=== PATIENT | male | born 1985 | race Asian ===

== ENCOUNTER 2020-04-28 00:55 | Emergency (ER) | payer BC ==
[2020-04-28 01:24] LABS: #Basophils 0.1 thou/uL (0.0-0.2); #Eosinphils 0.1 thou/uL (0.0-0.7); #Lymphocytes 2.6 thou/uL (1.20-3.40); #Monocytes 0.5 thou/uL (0.11-0.59); #Neutrophils 7.3 thou/uL (1.40-6.50); %Basophils 0.9 % (0.0-1.0); %Eosinophils 1.3 % (0.0-10.0); %Lymphocytes 24.3 % (21.0-51.0); %Neutrophils 68.5 % (42.0-75.0); Hemoglobin 17.4 g/dL (14.0-18.0); Mean Corpuscular HGB CONC 35.3 g/dL (32.0-36.0); Mean Corpuscular Hemoglobin 31.4 pg (27.0-31.0); Mean Platelet Volume 7.2 fL (7.4-10.4); Platelet Count 301 thou/uL (130-400); Red Blood Cell (RBC) Count 5.55 mill/uL (4.70-6.10); White Blood Cell (WBC) Count 10.6 thou/uL (4.8-10.8)
[2020-04-28 01:45] LABS: ALT (SGPT) 37 U/L (8-55); AST (SGOT) 27 U/L (5-34); Albumin 5.1 g/dL (3.5-5.0); Alkaline Phosphatase 78 U/L (40-110); Anion Gap 15 mmol/L (10-20); BUN (Urea Nitrogen) 10 mg/dL (8.9-20.6); Bilirubin, Total 0.6 mg/dL (0.2-1.2); Calc. Creatinine Clearance 0 mL/min (70-130); Calcium 9.7 mg/dL (7.8-10.44); Carbon Dioxide 26 mmol/L (22-29); Chloride 105 mmol/L (98-107); Globulin 3.6 g/dL (2.4-3.5); Glucose 126 mg/dL (70-105); Potassium 3.7 mmol/L (3.5-5.1); Protein, Total 8.7 g/dL (6.0-8.3); Sodium 142 mmol/L (136-145)
--- NOTE | 2020-04-28 08:29 | CT ---
PRELIMINARY REPORT/[facility]/EMERGENCY AFTER HOURS PROCEDURE EXAM: CTA Head and Neck with Intravenous Contrast. CT Head with/without Contrast. CLINICAL HISTORY: PT STATES HE HAS HAD SEVERAL EPISODES OF APHASIA DURING WHICH HE BELIEVES HE MAY HAVE HAD LEFT SIDED FACIAL DROOP WELL. PT IS VAN NEG AT TIME OF TRIAGE AND STATES HIS SYMPTOMS HAVE RESOLVED. TECHNIQUE: Axial CTA images of the head and neck performed with intravenous contrast. MIP reconstructed images w ere created and reviewed. Axial computed tomography images of the head/brain performed with/without intravenous contrast. Note: Per PQRS, the description of internal carotid artery percent stenosis, including 0 percent or n ormal exam, is based on [place] Symptomatic Carotid Endarterectomy Trial (NASCET) criteria. CONTRAST: With; [id number] COMPARISON: None provided. FINDINGS: CT HEAD: BRAIN: No acute intraparenchymal hemorrhage. No mass lesion. No CT evidence for acute territorial infarct. N o midline shift or extra-axial collection. VENTRICLES: No hydrocephalus. ORBITS: The orbits are unremarkable. SINUSES AND MASTOIDS: Paranasal sinus disease is present. CTA NECK: COMMON CAROTID ARTERIES No significant stenosis. No dissection or occlusion. INTERNAL CAROTID ARTERIES No stenosis by NASCET criteria. No dissection or occlusion. VERTEBRAL ARTERIES No significant stenosis. No dissection or occlusion. CTA HEAD: ANTERIOR CEREBRAL ARTERIES No significant stenosis. No occlusion. No aneurysm. MIDDLE CEREBRAL ARTERIES No significant stenosis. No occlusion. No aneurysm. POSTERIOR CEREBRAL ARTERIES No significant stenosis. No occlusion. No aneurysm. BASILAR ARTERY No significant stenosis. No occlusion. No aneurysm. OTHER: SOFT TISSUES No acute finding. No masses or lymphadenopathy. BONES No acute osseous abnormality. There is degenerative changes seen within the cervical spine with disc osteophyte complexes primarily at C4-C5 and C5-C6. There is moderate to severe neural foraminal narrowing bilaterally at C5-C6. There also appears to be some degree of spinal canal narrowing at th e same level with the canal narrowed to approximately 6 mm slightly right of midline. IMPRESSION: 1. No acute intracranial findings. 2. No evidence of intra-or extracranial aneurysm, dissection, occlusion or severe stenosis. 3. Degenerative change of the cervical spine, most severe at C5-C6 as above with likely moderate to severe bilateral neural foraminal stenosis and narrowing of the spinal canal slightly right of midline to 6 mm. Correlate with clinical symptoms. Consider MRI for further evaluation. ELECTRONICALLY SIGNED BY: Son Mortensen DO Apr 28, 2020 1:47:29 AM [employer] This report is intended for review by the ordering physician only, in accordance of law. If you recei ve this report in error, please call [facility] at [phone]. FINAL REPORT EXAM: CT ANGIOGRAM OF THE HEAD AND NECK INDICATION: Stroke like symptoms COMPARISON: None TECHNIQUE: CT angiogram of the head and neck are performed in the axial plane. Three-dimensional refo rmatted images are submitted for interpretation. FINDINGS: CTA OF THE HEAD WITH AND WITHOUT CONTRAST: POSTCONTRAST CT OF BRAIN: Pathologic enhancement: No pathologic enhancement the brain. Postcontrast soft tissue neck CT: Aerodigestive tract:Aerodigestive tract is patent. No mucosal abnormality. Limited evaluation of the oral cavity due to dental amalgam artifact. Epiglottis has a normal caliber. Preepiglottic fat is preserved. Sinuses: Partial opacification left ethmoid air cells. Mucus retention cysts in the left maxillary si nus. Orbits: Bilateral ocular lenses are appropriately located. Both globes are intact. Retrobulbar fat is preserved. Symmetric attenuation the optic nerves and ocular rectus muscles. Salivary glands:Appropriate attenuation of the parotid and submandibular glands. Thyroid gland: Appropriate attenuation of the thyroid gland. Lymph nodes: No evidence of lymphadenopathy by size criteria. Paraspinal muscles: Symmetric attenuation of the sternocleidomastoid muscles. Appropriate attenuation of the paraspinal muscles. Cervical spine:Vertebral body height is maintained. No fracture. Degenerative changes at C4-C5, C5-C6 due to disc osteophyte complex cyst. Technique limits evaluation. Upper mediastinum and lung apices: No acute abnormality CTA OF THE NECK WITH CONTRAST: Aorta: Appropriate enhancement and luminal diameter Right carotid artery: Appropriate enhancement and luminal diameter. No evidence of stenosis based upo n NASCET criteria Left carotid: Appropriate enhancement and luminal diameter. No evidence of stenosis based upon NASCET criteria Subclavian arteries:Symmetric and patent. Vertebral arteries: Patent throughout their course of the neck. Vertebral arteries are essentially co dominant CTA OF THE BRAIN: Intracranial internal carotid arteries:Appropriate enhancement and luminal diameter Anterior circulation: Appropriate enhancement and luminal diameter of the A1 segment, M1 segment, pro ximal A2 segment and proximal MCA branches. Intracranial vertebral arteries: Appropriate enhancement and luminal diameter Posterior circulation: Both vertebral arteries supply normal caliber basilar artery. Appropriate enha ncement and luminal diameter of the P1 segments. IMPRESSION: 1. This report is in agreement with initial report by [facility]. 2. No evidence of significant stenosis or vascular occlusion at the [place]. 3. No evidence of significant stenosis based upon NASCET criteria in the cervical carotid arteries. 4. Degenerative changes of the cervical spine as described in the initial report by [facility]. Transcribed Date/Time: 04/28/2020 8:58 AM
--- NOTE | 2020-04-28 08:45 | RAD ---
Exam: Chest one view HISTORY:Stroke like symptoms Comparison: None FINDINGS: Cardiac silhouette: Normal Aorta: Unremarkable Pulmonary vessels: Normal Costophrenic angles: Clear LUNGS: No masses or consolidation. Pneumothorax: None Osseous abnormalities: None IMPRESSION: No acute cardiopulmonary process.
[2020-04-28] MEDS ORDERED: Iopamidol-370 76% 500 ML 1 ML ONE (12:27)
--- NOTE | 2020-05-04 09:48 | CT ---
PRELIMINARY REPORT/[facility]/EMERGENCY AFTER HOURS PROCEDURE EXAM: CTA Head and Neck with Intravenous Contrast. CT Head with/without Contrast. CLINICAL HISTORY: PT STATES HE HAS HAD SEVERAL EPISODES OF APHASIA DURING WHICH HE BELIEVES HE MAY HAVE HAD LEFT SIDED FACIAL DROOP WELL. PT IS VAN NEG AT TIME OF TRIAGE AND STATES HIS SYMPTOMS HAVE RESOLVED. TECHNIQUE: Axial CTA images of the head and neck performed with intravenous contrast. MIP reconstructed images w ere created and reviewed. Axial computed tomography images of the head/brain performed with/without intravenous contrast. Note: Per PQRS, the description of internal carotid artery percent stenosis, including 0 percent or n ormal exam, is based on [place] Symptomatic Carotid Endarterectomy Trial (NASCET) criteria. CONTRAST: With; [id number] COMPARISON: None provided. FINDINGS: CT HEAD: BRAIN: No acute intraparenchymal hemorrhage. No mass lesion. No CT evidence for acute territorial infarct. N o midline shift or extra-axial collection. VENTRICLES: No hydrocephalus. ORBITS: The orbits are unremarkable. SINUSES AND MASTOIDS: Paranasal sinus disease is present. CTA NECK: COMMON CAROTID ARTERIES No significant stenosis. No dissection or occlusion. INTERNAL CAROTID ARTERIES No stenosis by NASCET criteria. No dissection or occlusion. VERTEBRAL ARTERIES No significant stenosis. No dissection or occlusion. CTA HEAD: ANTERIOR CEREBRAL ARTERIES No significant stenosis. No occlusion. No aneurysm. MIDDLE CEREBRAL ARTERIES No significant stenosis. No occlusion. No aneurysm. POSTERIOR CEREBRAL ARTERIES No significant stenosis. No occlusion. No aneurysm. BASILAR ARTERY No significant stenosis. No occlusion. No aneurysm. OTHER: SOFT TISSUES No acute finding. No masses or lymphadenopathy. BONES No acute osseous abnormality. There is degenerative changes seen within the cervical spine with disc osteophyte complexes primarily at C4-C5 and C5-C6. There is moderate to severe neural foraminal narrowing bilaterally at C5-C6. There also appears to be some degree of spinal canal narrowing at th e same level with the canal narrowed to approximately 6 mm slightly right of midline. IMPRESSION: 1. No acute intracranial findings. 2. No evidence of intra-or extracranial aneurysm, dissection, occlusion or severe stenosis. 3. Degenerative change of the cervical spine, most severe at C5-C6 as above with likely moderate to severe bilateral neural foraminal stenosis and narrowing of the spinal canal slightly right of midline to 6 mm. Correlate with clinical symptoms. Consider MRI for further evaluation. ELECTRONICALLY SIGNED BY: Son Mortensen DO Apr 28, 2020 1:47:29 AM [employer]OCK[employer] This report is intended for review by the ordering physician only, in accordance of law. If you recei ve this report in error, please call [facility] at [phone]. FINAL REPORT EXAM: CT ANGIOGRAM OF THE HEAD AND NECK INDICATION: Stroke like symptoms COMPARISON: None TECHNIQUE: CT angiogram of the head and neck are performed in the axial plane. Three-dimensional refo rmatted images are submitted for interpretation. FINDINGS: CTA OF THE HEAD WITH AND WITHOUT CONTRAST: POSTCONTRAST CT OF BRAIN: Pathologic enhancement: No pathologic enhancement the brain. Postcontrast soft tissue neck CT: Aerodigestive tract:Aerodigestive tract is patent. No mucosal abnormality. Limited evaluation of the oral cavity due to dental amalgam artifact. Epiglottis has a normal caliber. Preepiglottic fat is preserved. Sinuses: Partial opacification left ethmoid air cells. Mucus retention cysts in the left maxillary si nus. Orbits: Bilateral ocular lenses are appropriately located. Both globes are intact. Retrobulbar fat is preserved. Symmetric attenuation the optic nerves and ocular rectus muscles. Salivary glands:Appropriate attenuation of the parotid and submandibular glands. Thyroid gland: Appropriate attenuation of the thyroid gland. Lymph nodes: No evidence of lymphadenopathy by size criteria. Paraspinal muscles: Symmetric attenuation of the sternocleidomastoid muscles. Appropriate attenuation of the paraspinal muscles. Cervical spine:Vertebral body height is maintained. No fracture. Degenerative changes at C4-C5, C5-C6 due to disc osteophyte complex cyst. Technique limits evaluation. Upper mediastinum and lung apices: No acute abnormality CTA OF THE NECK WITH CONTRAST: Aorta: Appropriate enhancement and luminal diameter Right carotid artery: Appropriate enhancement and luminal diameter. No evidence of stenosis based upo n NASCET criteria Left carotid: Appropriate enhancement and luminal diameter. No evidence of stenosis based upon NASCET criteria Subclavian arteries:Symmetric and patent. Vertebral arteries: Patent throughout their course of the neck. Vertebral arteries are essentially co dominant CTA OF THE BRAIN: Intracranial internal carotid arteries:Appropriate enhancement and luminal diameter Anterior circulation: Appropriate enhancement and luminal diameter of the A1 segment, M1 segment, pro ximal A2 segment and proximal MCA branches. Intracranial vertebral arteries: Appropriate enhancement and luminal diameter Posterior circulation: Both vertebral arteries supply normal caliber basilar artery. Appropriate enha ncement and luminal diameter of the P1 segments. IMPRESSION: 1. This report is in agreement with initial report by [facility]. 2. No evidence of significant stenosis or vascular occlusion at the [place]. 3. No evidence of significant stenosis based upon NASCET criteria in the cervical carotid arteries. 4. Degenerative changes of the cervical spine as described in the initial report by [facility]. Transcribed Date/Time: 05/04/2020 9:48 AM
== END 2020-04-28 02:58 | disposition home or self-care (01) ==
LOC: ERS 00:55
DX: R47.01 Aphasia (principal)
CPT/HCPCS: 70496; 70498; 71045; 80053; 85025

== ENCOUNTER 2020-04-29 10:40 | Inpatient (IN) | payer BC ==
[2020-04-29] MEDS ORDERED: niCARdipine 20MG In NaCl 20 MG/200 ML BAG ONE (11:09)
[2020-04-29 11:30] LABS: #Basophils 0.1 thou/uL (0.0-0.2); #Eosinphils 0.1 thou/uL (0.0-0.7); #Lymphocytes 2.3 thou/uL (1.20-3.40); #Monocytes 0.6 thou/uL (0.11-0.59); #Neutrophils 6.5 thou/uL (1.40-6.50); %Basophils 0.7 % (0.0-1.0); %Eosinophils 0.8 % (0.0-10.0); %Lymphocytes 24.1 % (21.0-51.0); %Monocytes 6.7 % (0.0-10.0); %Neutrophils 67.8 % (42.0-75.0); Mean Corpuscular Hemoglobin 30.3 pg (27.0-31.0); Mean Corpuscular Volume 89.1 fL (78.0-98.0); Platelet Count 311 thou/uL (130-400); Red Blood Cell (RBC) Count 5.63 mill/uL (4.70-6.10); White Blood Cell (WBC) Count 9.6 thou/uL (4.8-10.8)
[2020-04-29 11:56] LABS: ALT (SGPT) 38 U/L (8-55); AST (SGOT) 26 U/L (5-34); Acetaminophen Less than 6.0 mcg/mL (10.0-30.0); Albumin 4.9 g/dL (3.5-5.0); Alcohol Less than 10 mg/dL (Less than 10); Alkaline Phosphatase 77 U/L (40-110); Anion Gap 14 mmol/L (10-20); BUN (Urea Nitrogen) 15 mg/dL (8.9-20.6); Bilirubin, Total 1.6 mg/dL (0.2-1.2); Calc. Creatinine Clearance 0 mL/min (70-130); Calcium 9.9 mg/dL (7.8-10.44); Carbon Dioxide 28 mmol/L (22-29); Chloride 104 mmol/L (98-107); Glucose 112 mg/dL (70-105); Potassium 4.2 mmol/L (3.5-5.1); Protein, Total 7.9 g/dL (6.0-8.3); Salicylate Less than 8.0 mg/dL (15.0-30.0); Sodium 142 mmol/L (136-145)
[2020-04-29 12:25] LABS: CKMB 1.5 ng/mL (0-6.6)
[2020-04-29 12:49] LABS: SARS-CoV-2 NAA Rapid Test Not Detected (NotDetected)
[2020-04-29] MEDS ORDERED: Amlodipine 5 MG TAB ONE (13:22)
[2020-04-29] MEDS ORDERED: Metoprolol Tartrate 50 MG TAB ONE (13:22)
[2020-04-29 13:41] LABS: Bilirubin Negative (Negative); Blood, Urine Negative (Negative); Clarity Turbid (Clear); Glucose, Urine (Dipstick) Normal (Negative); Ketone, Urine Negative (Negative); Leukocyte Negative Leu/uL (Negative); Nitrite Negative (Negative); Protein, Urine (Dipstick) Negative (Neg-Trace); Specific Gravity, Urine 1.013 (1.002-1.036); Urobilinogen Normal mg/dL (Less than 2); pH, Urine 7.5 (5.0-9.0)
[2020-04-29 13:56] LABS: Amphetamine Not Detected (NotDetected); Barbiturates Screen Not Detected (NotDetected); Benzodiazepine Screen Not Detected (NotDetected); Cocaine Metabolite Screen Not Detected (NotDetected); Medtox Control Line Valid? VALID (VALID); Medtox Reader # READER 1; Methadone Not Detected (NotDetected); Methamphetamine Not Detected (NotDetected); Opiate Screen Not Detected (NotDetected); Oxycodone Screen Not Detected (NotDetected); Phencyclidine (PCP) Not Detected (NotDetected); THC/Cannabinoid Screen Not Detected (NotDetected); Tricyclic Screen Not Detected (NotDetected)
[2020-04-29] MEDS ORDERED: Aspirin 325 MG TAB ONE (14:26)
[2020-04-29] MEDS ORDERED: Acetaminophen 650 MG Suppository PR PRN (14:33)
[2020-04-29] MEDS ORDERED: Acetaminophen 325 MG TAB PO PRN (14:33)
--- NOTE | 2020-04-29 14:50 | PDOC.HHP ---
Hospitalist HPI R arm weakness, expressive aphasia History of Present Illness: Mr. Mcmillan is a 34 year-old male with a PMHx of HTN who presents to the ER for three episodes of garbled speech and R arm weakness. Patient reports that the first episode occurred three days ago when he was sitting at home and was witnessed by his . The episode lasted a few minutes and his symptoms completely resolved. The patient was without heat due to the weather emergency and initially assumed his symptoms were from the cold. The following day however, when he was staying at a friend's house with head two more episodes happen each lasting approximately 10-15 minutes. Patient denies chest pain, SOB, or changes in vision during these episodes. He denies headache. Denies dizziness, lightheadness. No history of prior episodes. Patient does report a family history significant for strokes on both his mother and father's sides as well as early hypertension in his family. He reports he currently feels back to his baseline. Of note, the patient initially visited the emergency room overnight where a CT brain and CTA was done which both shoed no acute pathology. The patient left the emergency department AMA since he was concerned about the cost of admission and financial issues. At that time he was extremely hypertensive to the 230s sys tolic. In the ER today, initial vital signs 224/133, 94, 18, 90.4, 97% room air. BUN/CR 15/1.26, H/H 17.0/50.1. WBC 9.6. Initial troponin 0 0.036. EKG showed normal sinus rhythm with no ischemic changes and nonspecific T wave inversions stable from prior. Patient was started on a Cardene drip and weaned off with his blood pressure currently in the 160s systolic. He also received 50 mg of m etoprolol and 10 mg of amlodipine. Allergies/Adverse Reactions: Allergy/AdvReac Type Severity Reaction Status Date / Time No Known Allergies Allergy Unverified 04/29/20 14:36 Comments: No home medications Past History: PMHx: Patient reports he had a history of hypertension when he was in the in [place], but that this resolved with stress reduction and has not been on medication. PSHx: No past surgical history FHx: Reports family history of strokes on both his mother's and father's side as well as early hypertension in both of his parents. 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 He denies tobacco, alcohol or drug use. Hospitalist HPI ROS Constitutional: denies: fever, chills, sweats, weakness, malaise, other Eyes: denies: pain, vision change, conjunctivae inflammation, eyelid inflammation, redness, other ENT: denies: ear pain, ear discharge, nose pain, nose discharge, nose congestion, mouth pain, mouth swelling, throat pain, throat swelling, other Respiratory: denies: cough, dry, shortness of breath, hemoptysis, SOB with excertion, pleuritic pain, sputum, wheezing, other Cardiovascular: denies: chest pain, palpitations, orthopnea, paroxysmal noc. dyspnea, edema, light headedness, other Gastrointestinal: denies: nausea, vomiting, abdominal pain, diarrhea, c onstipation, melena, hematochezia, other Genitourinary: denies: dysuria, frequency, incontinence, hematuria, retention, other Musculoskeletal: denies: neck pain, shoulder pain, arm pain, back pain, hand pain, leg pain, foot pain, other Skin: denies: rash, lesions, solis, bruising, other Neurological: reports: weakness, change in speech Hospitalist Exam General Appearance: NAD, awake alert Eye: PERRL, anicteric sclera ENT: normocephalic atraumatic, no oropharyngeal lesions, moist mucosa Neck: supple, symmetric, no JVD, no thyromegaly, no lymphadenopathy, no carotid bruit Heart: RRR, no murmur, no gallops, no rubs, normal peripheral pulses Respiratory: CTAB, no wheezes, no rales, no ronchi, normal chest expansion, no tachypnea, normal percussion Gastrointestinal: soft, non-tender, non-distended, normal bowel sounds, no palpable masses, no hepatomegaly, no splenomegaly, no bruit Extremities: no cyanosis, no clubbing, no edema Skin: normal turgor, no lesions, no rashes Neurological: cranial nerve grossly intact, normal sensation to touch, no weakness, no focal deficits, no new deficit Neurological - other findings: No pronator drift, FTN intact Musculoskeletal: normal tone, normal strength, no muscle wasting Psychiatric: normal affect, normal behavior, A&O x 3 Hospitalist Results Result Diagrams: 04/29/20 11:22 04/29/20 11:22 Lab results: Laboratory Last Values WBC 9.6 thou/uL (4.8-10.8) 04/29/20 11:22 RBC 5.63 mill/uL (4.70-6.10) 04/29/20 11:22 Hgb 17.0 g/dL (14.0-18.0) 04/29/20 11:22 Hct 50.1 % (42.0-52.0) 04/29/20 11:22 MCV 89.1 fL (78.0-98.0) 04/29/20 11:22 MCH 30.3 pg (27.0-31.0) 04/29/20 11: MCHC 34.0 g/dL (32.0-36.0) 04/29/20 11: RDW 12.0 % (11.5-14.5) 04/29/20 11:22 Plt Count 311 thou/uL (130-400) 04/29/20 11:22 MPV 7.0 fL (7.4-10.4) L 04/29/20 11:22 Neutrophils % 67.8 % (42.0-75.0) 04/29/20 11:22 Lymphocytes % 24.1 % (21.0-51.0) 04/29/20 11:22 Monocytes % 6.7 % (0.0-10.0) 04/29/20 11:22 Eosinophils % 0.8 % (0.0-10.0) 04/29/20 11: Basophils % 0.7 % (0.0-1.0) 04/29/20 11:22 Neutrophils # 6.5 thou/uL (1.40-6.50) 04/29/20 11:22 Lymphocytes # 2.3 thou/uL (1.20-3.40) 04/29/20 11:22 Monocytes # 0.6 thou/uL (0.11-0.59) H 04/29/20 11:22 Eosinophils # 0.1 thou/uL (0.0-0.7) 04/29/20 11:22 Basophils # 0.1 thou/uL (0.0-0.2) 04/29/20 11:22 Sodium 142 mmol/L (136-145) 04/29/20 11:22 Potassium 4.2 mmol/L (3.5-5.1) 04/29/20 11:22 Chloride 104 mmol/L (98-107) 04/29/20 11:22 Carbon Dioxide 28 mmol/L (22-29) 04/29/20 11:22 Anion Gap 14 mmol/L (10-20) 04/29/20 11:22 BUN 15 mg/dL (8.9-20.6) 04/29/20 11:22 Creatinine 1.26 mg/dL (0.7-1.3) 04/29/20 11:22 Estimated GFR (MDRD) 66 04/29/20 11:22 Glucose 112 mg/dL (70-105) H 04/29/20 11:22 Calcium 9.9 mg/dL (7.8-10.44) 04/29/20 11:22 Total Bilirubin 1.6 mg/dL (0.2-1.2) H 04/29/20 11:22 AST 26 U/L (5-34) 04/29/20 11:22 ALT 38 U/L (8-55) 04/29/20 11:22 Alkaline Phosphatase 77 U/L (40-110) 04/29/20 11:22 CK-MB (CK-2) 1.5 ng/mL (0-6.6) 04/29/20 11:22 Troponin I 0.036 ng/mL (< 0.028) H 04/29/20 11:22 Serum Total Protein 7.9 g/dL (6.0-8.3) 04/29/20 11:22 Albumin 4.9 g/dL (3.5-5.0) 04/29/20 11:22 Globulin 3.0 g/dL (2.4-3.5) 04/29/20 11:22 Albumin/Globulin Ratio 1.6 g/dL (1.2-2.2) 04/29/20 11:22 Urine Color Light-Yellow (Yellow) 04/29/20 13:10 Urine Clarity Turbid (Clear) A 04/29/20 13:10 Urine pH 7.5 (5.0-9.0) 04/29/20 13:10 Ur Specific [place] 1.013 (1.002-1.036) 04/29/20 13:10 Urine Protein Negative mg/dL (Neg-Trace) 04/29/20 13:10 Urine Glucose (UA) Normal mg/dL (Negative) 04/29/20 13:10 Urine Ketones Negative mg/dL (Negative) 04/29/20 13:10 Urine Blood Negative (Negative) 04/29/20 13:10 Urine Nitrite Negative (Negative) 04/29/20 13:10 Urine Bilirubin Negative (Negative) 04/29/20 13:10 Urine Urobilinogen Normal mg/dL (Less than 2) 04/29/20 13:10 Ur Leukocyte Esterase Negative Xenia/uL (Negative) 04/29/20 13:10 Salicylates Less than 8.0 mg/dL (15.0-30.0) L 04/29/20 11:22 Urine Opiates Screen Not Detected (NotDetected) 04/29/20 13:10 Ur Oxycodone Screen Not Detected (NotDetected) 04/29/20 13:10 Urine Methadone Screen Not Detected (NotDetected) 04/29/20 13:10 Ur Propoxyphene Screen Not Detected (NotDetected) 04/29/20 13:10 Acetaminophen Less than 6.0 mcg/mL (10.0-30.0) L 04/29/20 11:22 Ur Barbiturates Screen Not Detected (NotDetected) 04/29/20 13:10 Ur Tricyclics Screen Not Detected (NotDetected) 04/29/20 13:10 Ur Phencyclidine Scrn Not Detected (NotDetected) 04/29/20 13:10 Ur Amphetamines Screen Not Detected (NotDetected) 04/29/20 13:10 U Methamphetamines Scrn Not Detected (NotDetected) 04/29/20 13:10 U Benzodiazepines Scrn Not Detected (NotDetected) 04/29/20 13:10 U Cocaine Metab Screen Not Detected (NotDetected) 04/29/20 13:10 U Cannabinoids Screen Not Detected (NotDetected) 04/29/20 13:10 Drug Screen Comment () 04/29/20 13:10 Plasma Alcohol Less than 10 mg/dL (Less than 10) 04/29/20 11:22 Influenza A RNA INAAT Not Detected (NotDetected) 04/29/20 11:59 Influenza B RNA INAAT Not Detected (NotDetected) 04/29/20 11:59 SARS-CoV-2 Rap RNA(RT-PCR) Not Detected (NotDetected) 04/29/20 11:59 Hospitalist H&P A/P Plan: TIA 34-year-old male with past medical history of hypertension presents for 3 episodes of expressive aphasia associated with right arm weakness lasting approximately 10 minutes each. Patient currently asymptomatic. CT brain, CTA head neck with no acute findings. Neurologically intact on exam. Patient also with hypertensive emergency which may be contributing. Will admit for TIA rule out, obtain MRI and echocardiogram. Plan MRI brain Telemetry monitoring TSH, magnesium Hemoglobin A1c, lipid panel Hypertensive emergency Patient presented in hypertensive emergency with initial blood pressure 224/133. Started on a Cardene drip in emergency room with improvement of blood pressure in the 160s systolic. Also received 50 mg of Toprol and 10 mg of amlodipine. Initial troponin 0 0.036. No ischemic changes on EKG. Patient reports strong family history of early hypertension and reports he is not previously on any medications. Does not have a primary care provider. Will make as needed hydralazine available as well start patient on lisinopril as renal function allows. Plan As needed hydralazine Lisinopril 10 mg daily -Ensure gradual reduction in BP Elevation in troponin Initial troponin 0 0.036. EKG with no ischemic changes but nonspecific T wave inversions. Patient has no chest pain. Likely secondary to hypertensive emergency. We will continue to trend and keep on telemetry monitoring. Plan Telemetry monitoring Trend troponin DVT prophylaxis/Lovenox Full code Case discussed with attending physician, Dr. Whatley.
[2020-04-29 15:01] LABS: Hemoglobin A1c 5.8 % (4.0-6.0)
[2020-04-29 15:21] LABS: Troponin I 0.027 ng/mL (< 0.028)
[2020-04-29] MEDS ORDERED: hydrALAZINE 20 MG/ML VIAL ONE (16:21)
[2020-04-29] MEDS ORDERED: hydrALAZINE 25 MG TAB ONE ×2 (18:33→21:48)
[2020-04-29] MEDS ORDERED: Labetalol HCl 100 MG/20 ML VIAL ONE (18:33)
[2020-04-29 18:42] LABS: CKMB 1.2 ng/mL (0-6.6)
[2020-04-29] MEDS ORDERED: Labetalol HCl 100 MG/20 ML VIAL SLOW IVP PRN (19:34)
[2020-04-29] MEDS ORDERED: hydrALAZINE 25 MG TAB PO SCH ×2 (19:45→21:00)
[2020-04-29] MEDS: Atorvastatin Calcium 40 MG TAB PO SCH (22:06)
[2020-04-30] MEDS: Labetalol HCl 100 MG/20 ML VIAL SLOW IVP PRN ×2 (01:07→11:40)
[2020-04-30 01:43] VITALS: BMI 27.6
[2020-04-30 05:25] LABS: #Basophils 0.1 thou/uL (0.0-0.2); #Eosinphils 0.2 thou/uL (0.0-0.7); #Lymphocytes 2.9 thou/uL (1.20-3.40); #Monocytes 0.8 thou/uL (0.11-0.59); #Neutrophils 6.3 thou/uL (1.40-6.50); %Basophils 0.9 % (0.0-1.0); %Eosinophils 1.8 % (0.0-10.0); %Lymphocytes 28.1 % (21.0-51.0); %Monocytes 7.8 % (0.0-10.0); %Neutrophils 61.3 % (42.0-75.0); Hemoglobin 16.4 g/dL (14.0-18.0); Mean Corpuscular HGB CONC 33.6 g/dL (32.0-36.0); Mean Corpuscular Hemoglobin 29.7 pg (27.0-31.0); Mean Corpuscular Volume 88.3 fL (78.0-98.0); Mean Platelet Volume 6.7 fL (7.4-10.4); Platelet Count 323 thou/uL (130-400); RBC Distribution Width 12.1 % (11.5-14.5); Red Blood Cell (RBC) Count 5.52 mill/uL (4.70-6.10); White Blood Cell (WBC) Count 10.2 thou/uL (4.8-10.8)
[2020-04-30 05:44] LABS: Anion Gap 14 mmol/L (10-20); BUN (Urea Nitrogen) 17 mg/dL (8.9-20.6); Calc. Creatinine Clearance 109 mL/min (70-130); Calcium 9.3 mg/dL (7.8-10.44); Carbon Dioxide 27 mmol/L (22-29); Cardiac Risk 6.5 (Less than 4.5); Chloride 105 mmol/L (98-107); Cholesterol 234 mg/dl (< 200 Desired); Glucose 114 mg/dL (70-105); HDL Cholesterol 36 mg/dL (>60 Neg Risk); LDL Cholesterol, Calculated 164 mg/dL; Potassium 3.9 mmol/L (3.5-5.1); Sodium 142 mmol/L (136-145); Triglycerides 168 mg/dL (Less than 150)
[2020-04-30] MEDS ORDERED: Sodium Chloride 0.9% 10 ML ONE (08:49)
[2020-04-30] MEDS ORDERED: Lisinopril 10 MG TAB PO SCH (09:00)
[2020-04-30] MEDS ORDERED: hydrALAZINE 25 MG TAB PO SCH (09:00)
[2020-04-30] MEDS ORDERED: Amlodipine 10 MG TAB PO SCH (09:00)
[2020-04-30] MEDS: Enoxaparin Sodium 40 MG/0.4 ML SYRINGE SC SCH (09:44)
[2020-04-30] MEDS: Aspirin 81 mg Enteric Coated Tablet PO SCH (09:46)
--- NOTE | 2020-04-30 11:21 | MRI ---
MRI BRAIN WITHOUT CONTRAST: HISTORY: TIA. Slurred speech CORRELATION: CT scan from 04/28/2020. FINDINGS: No restricted diffusion is seen. The ventricular size is appropriate and the basilar cisterns are pa tent. No evidence of acute infarct, hemorrhage, midline shift or abnormal extra-axial fluid collections is seen. There are mucus retention cysts versus polyps in the left maxillary sinus. IMPRESSION: No evidence of acute intracranial process.
--- NOTE | 2020-04-30 14:16 | CON ---
NEUROLOGY CONSULTATION DATE OF CONSULTATION: 04/30/2020 REASON FOR CONSULTATION: Episodes of right arm weakness and expressive aphasia. HISTORY OF PRESENT ILLNESS: Mr. Mcmillan is a 34-year-old male with medical history significant for hypertension, who presented to the emergency room after 3 episodes of expressive aphasia and right arm weakness. Per patient, the first episode occurred on Sunday when he was sitting at home and was witnessed by his . It lasted for a few minutes, then resolved on its own. The patient attributed it to the weather conditions and heating at his house. On Sunday, he was staying at a friend's house and he had another episodes, which lasted for about 10 to 15 minutes. . The last episode was yesterday which lasted for around 15 minutes. . The patient does have right arm weakness associated with expressive aphasia; however, he denies nausea and vomiting, but does have headache . He denies chest pain, focal paresthesia, double vision, vertigo, dizziness, recent illness or recent exposure to COVID. The patient visited the emergency room overnight after the second episode where the head CT was done and the CTA, which were negative. The patient left the emergency room AMA because he was concerned about the cost and financial issues. He was found to be extremely hypertensive with 230 systolic; However, with the third episode, he decided to come to the emergency room with initial vital signs showing he had a blood pressure of 224/133 and the labs showing acute kidney injury. EKG showed normal sinus rhythm. He was given metoprolol and amlodipine and admitted for TIA workup. ALLERGIES: NO KNOWN DRUG ALLERGIES. PAST MEDICAL HISTORY: Hypertension. PAST SURGICAL HISTORY: None. FAMILY HISTORY: Stroke and hypertension. 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 Denies smoking, alcohol, illegal drug use. REVIEW OF SYSTEMS: All systems reviewed and were negative except the pertinent positives and negatives mentioned in the HPI. PHYSICAL EXAMINATION: 175/77 88 18 General Appearance: NAD, awake alert Eye: PERRL, anicteric sclera ENT: normocephalic atraumatic, no oropharyngeal lesions, moist mucosa Neck: supple, symmetric, no JVD, no thyromegaly, no lymphadenopathy, no carotid bruit Heart: RRR, no murmur, no gallops, no rubs, normal peripheral pulses Respiratory: CTAB, no wheezes, no rales, no ronchi, normal chest expansion, no tachypnea, normal percussion Gastrointestinal: soft, non-tender, non-distended, normal bowel sounds, no palpable masses, no hepatomegaly, no splenomegaly, no bruit Extremities: no cyanosis, no clubbing, no edema Skin: normal turgor, no lesions, no rashes Neurological: Mental status, the patient is alert and oriented to person, place, and time. Motor, muscle tone and bulk are normal. Strength 5/5 bilaterally. Cerebellar, finger-nose testing intact. Gait, deferred due to the patient's safety reasons. Cranial nerves 2 through 12 intact. DATA REVIEWED: I reviewed the labs which did show a creatinine of 1.26, otherwise essentially unremarkable. The lipid panel was abnormal. WBC 9.6 thou/uL (4.8-10.8) 04/29/20 11: RBC 5.63 mill/uL (4.70-6.10) 04/29/20 11:22 Hgb 17.0 g/dL (14.0-18.0) 04/29/20 11:22 Hct 50.1 % (42.0-52.0) 04/29/20 11:22 MCV 89.1 fL (78.0-98.0) 04/29/20 11:22 MCH 30.3 pg (27.0-31.0) 04/29/20 11:22 MCHC 34.0 g/dL (32.0-36.0) 04/29/20 11:22 RDW 12.0 % (11.5-14.5) 04/29/20 11:22 Plt Count 311 thou/uL (130-400) 04/29/20 11:22 MPV 7.0 fL (7.4-10.4) L 04/29/20 11:22 Neutrophils % 67.8 % (42.0-75.0) 04/29/20 11:22 Lymphocytes % 24.1 % (21.0-51.0) 04/29/20 11:22 Monocytes % 6.7 % (0.0-10.0) 04/29/20 11:22 Eosinophils % 0.8 % (0.0-10.0) 04/29/20 11:22 Basophils % 0.7 % (0.0-1.0) 04/29/20 11:22 Neutrophils # 6.5 thou/uL (1.40-6.50) 04/29/20 11:22 Lymphocytes # 2.3 thou/uL (1.20-3.40) 04/29/20 11:22 Monocytes # 0.6 thou/uL (0.11-0.59) H 04/29/20 11:22 Eosinophils # 0.1 thou/uL (0.0-0.7) 04/29/20 11:22 Basophils # 0.1 thou/uL (0.0-0.2) 04/29/20 11:22 Sodium 142 mmol/L (136-145) 04/29/20 11:22 Potassium 4.2 mmol/L (3.5-5.1) 04/29/20 11:22 Chloride 104 mmol/L (98-107) 04/29/20 11:22 Carbon Dioxide 28 mmol/L (22-29) 04/29/20 11:22 Anion Gap 14 mmol/L (10-20) 04/29/20 11:22 BUN 15 mg/dL (8.9-20.6) 04/29/20 11:22 Creatinine 1.26 mg/dL (0.7-1.3) 04/29/20 11:22 Estimated GFR (MDRD) 66 04/29/20 11:22 Glucose 112 mg/dL (70-105) H 04/29/20 11:22 Calcium 9.9 mg/dL (7.8-10.44) 04/29/20 11:22 Total Bilirubin 1.6 mg/dL (0.2-1.2) H 04/29/20 11:22 AST 26 U/L (5-34) 04/29/20 11:22 ALT 38 U/L (8-55) 04/29/20 11:22 Alkaline Phosphatase 77 U/L (40-110) 04/29/20 11:22 CK-MB (CK-2) 1.5 ng/mL (0-6.6) 04/29/20 11:22 Troponin I 0.036 ng/mL (< 0.028) H 04/29/20 11:22 Serum Total Protein 7.9 g/dL (6.0-8.3) 04/29/20 11:22 Albumin 4.9 g/dL (3.5-5.0) 04/29/20 11:22 Globulin 3.0 g/dL (2.4-3.5) 04/29/20 11:22 Albumin/Globulin Ratio 1.6 g/dL (1.2-2.2) 04/29/20 11:22 Urine Color Light-Yellow (Yellow) 04/29/20 13:10 Urine Clarity Turbid (Clear) A 04/29/20 13:10 Urine pH 7.5 (5.0-9.0) 04/29/20 13:10 Ur Specific [place] 1.013 (1.002-1.036) 04/29/20 13:10 Urine Protein Negative mg/dL (Neg-Trace) 04/29/20 13:10 Urine Glucose (UA) Normal mg/dL (Negative) 04/29/20 13:10 Urine Ketones Negative mg/dL (Negative) 04/29/20 13:10 Urine Blood Negative (Negative) 04/29/20 13:10 Urine Nitrite Negative (Negative) 04/29/20 13:10 Urine Bilirubin Negative (Negative) 04/29/20 13:10 Urine Urobilinogen Normal mg/dL (Less than 2) 04/29/20 13:10 Ur Leukocyte Esterase Negative Xenia/uL (Negative) 04/29/20 13:10 Salicylates Less than 8.0 mg/dL (15.0-30.0) L 04/29/20 11:22 Urine Opiates Screen Not Detected (NotDetected) 04/29/20 13:10 Ur Oxycodone Screen Not Detected (NotDetected) 04/29/20 13:10 Urine Methadone Screen Not Detected (NotDetected) 04/29/20 13:10 Ur Propoxyphene Screen Not Detected (NotDetected) 04/29/20 13:10 Acetaminophen Less than 6.0 mcg/mL (10.0-30.0) L 04/29/20 11:22 Ur Barbiturates Screen Not Detected (NotDetected) 04/29/20 13:10 Ur Tricyclics Screen Not Detected (NotDetected) 04/29/20 13:10 Ur Phencyclidine Scrn Not Detected (NotDetected) 04/29/20 13:10 Ur Amphetamines Screen Not Detected (NotDetected) 04/29/20 13:10 U Methamphetamines Scrn Not Detected (NotDetected) 04/29/20 13:10 U Benzodiazepines Scrn Not Detected (NotDetected) 04/29/20 13:10 U Cocaine Metab Screen Not Detected (NotDetected) 04/29/20 13:10 U Cannabinoids Screen Not Detected (NotDetected) 04/29/20 13:10 Drug Screen Comment () 04/29/20 13:10 Plasma Alcohol Less than 10 mg/dL (Less than 10) 04/29/20 11:22 Influenza A RNA INAAT Not Detected (NotDetected) 04/29/20 11:59 Influenza B RNA INAAT Not Detected (NotDetected) 04/29/20 11:59 SARS-CoV-2 Rap RNA(RT-PCR) Not Detected (NotDetected) 04/29/20 11:59 ASSESSMENT AND PLAN: Mr. Mcmillan is a 34-year-old male with medical history significant for hypertension, who presented with 3 episodes of expressive aphasia associated with right arm weakness lasting for about 10 to [address] and CT of the head and neck did not reveal any hemodynamically significant stenosis. MRI of the brain reviewed, which was negative for acute intracranial process, most likely transient ischemic attack. Strict control of blood pressure and blood glucose. Continue telemetry to rule out arrhythmias. 2D echo to evaluate for left ventricular ejection fraction and rule out PFO. Start aspirin and high-intensity statin for secondary stroke prevention. Neuro checks every 4 hours. Continue medical management per primary team. PT/OT. Plan discussed in detail with the patient, and the patient was seen with the primary attending, Dr. Gregg. We will continue to follow. Thank you for the consult. Job ID: [id number] [facility]
[2020-04-30] MEDS: hydrALAZINE 25 MG TAB PO SCH ×2 (16:14→21:05)
--- NOTE | 2020-04-30 17:29 | PDOC.HOSPP ---
- Subjective Encounter Date: 04/30/20 Subjective: Patient is feeling better today. He is asymptomatic. - Objective Vital Signs & Weight: Vital Signs (12 hours) Temp Pulse Resp BP Pulse Ox 04/30/20 16:00 98.7 F 81 18 156/93 H 95 04/30/20 13:20 175/77 H 04/30/20 12:35 177/97 H 04/30/20 11:38 97.6 F 85 16 190/106 H 97 04/30/20 09:35 99.5 F 78 16 185/112 H 99 Weight Weight 176 lb I&O: 04/29/20 04/30/20 05/01/20 06:59 06:59 06:59 Intake Total 550 Balance 550 Result Diagrams: 04/30/20 05:11 04/30/20 05:11 Hospitalist ROS - Medication Medications: Active Medications Generic Name Dose Route Start Last Admin Trade Name Freq PRN Reason Stop Dose Admin Aspirin 81 mg 04/30/20 09:00 04/30/20 09:46 Aspirin 81 Mg Enteric Coated Tablet PO 81 mg DAILY GENA Administration Atorvastatin Calcium 40 mg 04/29/20 21:00 04/29/20 22:06 Atorvastatin Calcium 40 Mg Tab PO 40 mg HS GENA Administration Enoxaparin Sodium 40 mg 04/30/20 09:00 04/30/20 09:44 Enoxaparin Sodium 40 Mg/0.4 Ml Syringe SC 40 mg 0900 GENA Administration Hydralazine HCl 50 mg 04/30/20 15:00 04/30/20 16:14 Hydralazine 25 Mg Tab PO 50 mg TID GENA Administration Labetalol HCl 20 mg 04/29/20 19:31 04/30/20 11:40 Labetalol Hcl 100 Mg/20 Ml Vial SLOW IVP 4 ml Q4H PRN Administration SBP Greater Than 180 Lisinopril 10 mg 04/30/20 09:00 04/30/20 09:46 Lisinopril 10 Mg Tab PO 10 mg DAILY GENA Administration Sodium Chloride 10 ml 04/29/20 14:34 04/30/20 01:07 Flush - Normal Saline 10 Ml Syringe IVF 10 ml PRN PRN Administration Saline Flush Hospitalist Exam Vitals: Vital Signs (12 hours) Temp Pulse Resp BP Pulse Ox 04/30/20 16:00 98.7 F 81 18 156/93 H 95 04/30/20 13:20 175/77 H 04/30/20 12:35 177/97 H 04/30/20 11:38 97.6 F 85 16 190/106 H 97 04/30/20 09:35 99.5 F 78 16 185/112 H 99 Weight Weight 176 lb General Appearance: NAD, awake alert General - other findings: Very muscular and well-built Heart: RRR, no murmur, no gallops, no rubs, normal peripheral pulses Respiratory: CTAB, no wheezes, no rales, no ronchi, normal chest expansion, no tachypnea, normal percussion Gastrointestinal: soft, non-tender, non-distended, normal bowel sounds, no palpable masses, no hepatomegaly, no splenomegaly, no bruit Extremities: no cyanosis, no clubbing, no edema Skin: normal turgor, no lesions, no rashes Neurological: no focal deficits Musculoskeletal: normal tone, normal strength, no muscle wasting Psychiatric: normal affect, normal behavior, A&O x 3 Hosp A/P - Plan Hypertensive emergency Patient presented in hypertensive emergency with initial blood pressure 224/133. Started on a Cardene drip in emergency room with improvement of blood pressure in the 160s systolic. Also received 50 mg of Toprol and 10 mg of amlodipine. Initial troponin 0 0.036. No ischemic changes on EKG. Patient reports strong family history of early hypertension and reports he is not previously on any medications. Does not have a primary care provider. Plan As needed hydralazine Lisinopril 10 mg daily Added hydralazine 25 mg p.o. 3 times daily. This was increased to 50 mg 3 times daily as his blood pressure continues to run significantly high through the day. TIA 34-year-old male with past medical history of hypertension presents for 3 episodes of expressive aphasia associated with right arm weakness lasting approximately 10 minutes each. Patient is asymptomatic on presentation CT brain, CTA head neck with no acute findings. Neurologically intact on exam. Patient also with hypertensive emergency which may be contributing. MRI negative and echocardiogram pending. Telemetry monitoring unremarkable. TSH and magnesium normal. Hemoglobin A1c was normal. Ultimately suspect this is more of a hypertensive encephalopathy than a TIA. Elevation in troponin Initial troponin 0 0.036. EKG with no ischemic changes but nonspecific T wave inversions. Patient has no chest pain. Likely secondary to hypertensive emergency. Subsequent levels were similar but were not trending in any particular direction. Hyperlipidemia: Patient has hyperlipidemia on his labs. He reports this was normal a couple years ago. We will start statin. DVT prophylaxis/Lovenox Full code
[2020-04-30] MEDS: Atorvastatin Calcium 40 MG TAB PO SCH (21:05)
[2020-05-01] MEDS: hydrALAZINE 20 MG/ML VIAL SLOW IVP PRN (00:50)
[2020-05-01] MEDS: Labetalol HCl 100 MG/20 ML VIAL SLOW IVP PRN (04:13)
[2020-05-01 07:52] LABS: #Basophils 0.1 thou/uL (0.0-0.2); #Eosinphils 0.2 thou/uL (0.0-0.7); #Lymphocytes 2.4 thou/uL (1.20-3.40); #Monocytes 0.7 thou/uL (0.11-0.59); #Neutrophils 6.7 thou/uL (1.40-6.50); %Basophils 0.9 % (0.0-1.0); %Lymphocytes 24.1 % (21.0-51.0); %Monocytes 6.6 % (0.0-10.0); %Neutrophils 66.4 % (42.0-75.0); Hemoglobin 16.4 g/dL (14.0-18.0); Mean Corpuscular HGB CONC 33.9 g/dL (32.0-36.0); Mean Corpuscular Hemoglobin 30.4 pg (27.0-31.0); Mean Corpuscular Volume 89.7 fL (78.0-98.0); Mean Platelet Volume 6.9 fL (7.4-10.4); Platelet Count 294 thou/uL (130-400); Red Blood Cell (RBC) Count 5.38 mill/uL (4.70-6.10)
[2020-05-01 08:09] LABS: Anion Gap 13 mmol/L (10-20); BUN (Urea Nitrogen) 14 mg/dL (8.9-20.6); Calc. Creatinine Clearance 116 mL/min (70-130); Calcium 9.1 mg/dL (7.8-10.44); Carbon Dioxide 24 mmol/L (22-29); Chloride 105 mmol/L (98-107); Glucose 106 mg/dL (70-105); Potassium 3.7 mmol/L (3.5-5.1); Sodium 138 mmol/L (136-145)
[2020-05-01] MEDS: Aspirin 81 mg Enteric Coated Tablet PO SCH (09:07)
[2020-05-01] MEDS: Enoxaparin Sodium 40 MG/0.4 ML SYRINGE SC SCH (09:07)
[2020-05-01] MEDS: Metoprolol Tartrate 25 MG TAB PO SCH ×2 (09:08→21:42)
[2020-05-01] MEDS: hydrALAZINE 25 MG TAB PO SCH ×3 (09:08→21:42)
[2020-05-01] MEDS: Lisinopril 20 MG TAB PO SCH (09:08)
--- NOTE | 2020-05-01 18:08 | PDOC.HOSPP ---
- Subjective Encounter Date: 05/01/20 Subjective: Patient feels generally okay today. Denies any new symptoms. - Objective Vital Signs & Weight: Vital Signs (12 hours) Temp Pulse Resp BP Pulse Ox 05/01/20 15:28 98.7 F 77 16 162/108 H 98 05/01/20 11:40 99.0 F 82 12 171/95 H 98 05/01/20 09:06 98.8 F 95 20 179/96 H 97 Weight Weight 176 lb I&O: 04/30/20 05/01/20 05/02/20 06:59 06:59 06:59 Intake Total 550 3210 Balance 550 3210 Result Diagrams: 05/01/20 07:27 05/01/20 07:27 Hospitalist ROS - Medication Medications: Active Medications Generic Name Dose Route Start Last Admin Trade Name Freq PRN Reason Stop Dose Admin Aspirin 81 mg 04/30/20 09:00 05/01/20 09:07 Aspirin 81 Mg Enteric Coated Tablet PO 81 mg DAILY GENA Administration Atorvastatin Calcium 40 mg 04/29/20 21:00 04/30/20 21:05 Atorvastatin Calcium 40 Mg Tab PO 40 mg HS GENA Administration Enoxaparin Sodium 40 mg 04/30/20 09:00 05/01/20 09:07 Enoxaparin Sodium 40 Mg/0.4 Ml Syringe SC 40 mg 0900 GENA Administration Hydralazine HCl 10 mg 04/29/20 14:32 05/01/20 00:50 Hydralazine 20 Mg/Ml Vial SLOW IVP 10 mg Q4H PRN Administration SBP Greater Than 170 Hydralazine HCl 50 mg 04/30/20 15:00 05/01/20 15:30 Hydralazine 25 Mg Tab PO 50 mg TID GENA Administration Labetalol HCl 20 mg 04/29/20 19:31 05/01/20 04:13 Labetalol Hcl 100 Mg/20 Ml Vial SLOW IVP 4 ml Q4H PRN Administration SBP Greater Than 180 Lisinopril 20 mg 05/01/20 09:00 05/01/20 09:08 Lisinopril 20 Mg Tab PO 20 mg DAILY GENA Administration Metoprolol Tartrate 12.5 mg 05/01/20 09:00 05/01/20 09:08 Metoprolol Tartrate 25 Mg Tab PO 12.5 mg BID GENA Administration Sodium Chloride 10 ml 04/29/20 14:34 04/30/20 01:07 Flush - Normal Saline 10 Ml Syringe IVF 10 ml PRN PRN Administration Saline Flush Hospitalist Exam Vitals: Vital Signs (12 hours) Temp Pulse Resp BP Pulse Ox 05/01/20 15:28 98.7 F 77 16 162/108 H 98 05/01/20 11:40 99.0 F 82 12 171/95 H 98 05/01/20 09:06 98.8 F 95 20 179/96 H 97 Weight Weight 176 lb General Appearance: NAD, awake alert Eye: PERRL, anicteric sclera Neck: supple, symmetric, no JVD, no thyromegaly, no lymphadenopathy, no carotid bruit Heart: RRR, no murmur, no gallops, no rubs, normal peripheral pulses Respiratory: CTAB, no wheezes, no rales, no ronchi, normal chest expansion, no tachypnea, normal percussion Gastrointestinal: soft, non-tender, non-distended, normal bowel sounds, no palpable masses, no hepatomegaly, no splenomegaly, no bruit Extremities: no cyanosis, no clubbing, no edema Skin: normal turgor, no lesions, no rashes Neurological: cranial nerve grossly intact, normal sensation to touch, no weakness, no focal deficits, no new deficit Musculoskeletal: normal tone, normal strength, no muscle wasting Psychiatric: normal affect, normal behavior, A&O x 3 Hosp A/P - Plan Hypertensive emergency Patient presented in hypertensive emergency with initial blood pressure 224/133. Started on a Cardene drip in emergency room with improvement of blood pressure in the 160s systolic. Also received 50 mg of Toprol and 10 mg of amlodipine. Initial troponin 0 0.036. No ischemic changes on EKG. Patient reports strong family history of early hypertension and reports he is not previously on any medications. Does not have a primary care provider. Plan As needed hydralazine Lisinopril 10 mg daily Added hydralazine 25 mg p.o. 3 times daily. This was increased to 50 mg 3 times daily as his blood pressure continues to run significantly high through the day. 05/01/2020 patient's hydralazine was increased maximally. His lisinopril was also increased. Blood pressures close to the acceptable range. We will obtain a renal artery Doppler. Hypertensive encephalopathy 34-year-old male with past medical history of hypertension presents for 3 episodes of expressive aphasia associated with right arm weakness lasting approximately 10 minutes each. Patient is asymptomatic on presentation CT brain, CTA head neck with no acute findings. Neurologically intact on exam. Patient also with hypertensive emergency which may be contributing. MRI negative and echocardiogram pending. Telemetry monitoring unremarkable. TSH and magnesium normal. Hemoglobin A1c was normal. Ultimately suspect this is more of a hypertensive encephalopathy than a TIA. Elevation in troponin Initial troponin 0 0.036. EKG with no ischemic changes but nonspecific T wave inversions. Patient has no chest pain. Likely secondary to hypertensive emergency. Subsequent levels were similar but were not trending in any particular direction. Hyperlipidemia: Patient has hyperlipidemia on his labs. He reports this was normal a couple years ago. We will start statin. DVT prophylaxis/Lovenox Full code
[2020-05-01] MEDS: Atorvastatin Calcium 40 MG TAB PO SCH (21:42)
[2020-05-02] MEDS: hydrALAZINE 20 MG/ML VIAL SLOW IVP PRN ×2 (00:19→05:25)
[2020-05-02] MEDS: Labetalol HCl 100 MG/20 ML VIAL SLOW IVP PRN (03:53)
[2020-05-02 05:42] LABS: #Basophils 0.1 thou/uL (0.0-0.2); #Eosinphils 0.3 thou/uL (0.0-0.7); #Lymphocytes 2.8 thou/uL (1.20-3.40); #Monocytes 0.9 thou/uL (0.11-0.59); #Neutrophils 7.5 thou/uL (1.40-6.50); %Basophils 1.1 % (0.0-1.0); %Eosinophils 2.6 % (0.0-10.0); %Lymphocytes 23.8 % (21.0-51.0); %Neutrophils 64.5 % (42.0-75.0); Mean Corpuscular Volume 88.2 fL (78.0-98.0); Mean Platelet Volume 6.9 fL (7.4-10.4); Platelet Count 324 thou/uL (130-400); RBC Distribution Width 12.1 % (11.5-14.5); Red Blood Cell (RBC) Count 5.34 mill/uL (4.70-6.10); White Blood Cell (WBC) Count 11.6 thou/uL (4.8-10.8)
[2020-05-02 06:01] LABS: Anion Gap 12 mmol/L (10-20); BUN (Urea Nitrogen) 16 mg/dL (8.9-20.6); Calc. Creatinine Clearance 121 mL/min (70-130); Carbon Dioxide 19 mmol/L (22-29); Chloride 108 mmol/L (98-107); Glucose 113 mg/dL (70-105); Potassium 3.7 mmol/L (3.5-5.1); Sodium 135 mmol/L (136-145)
[2020-05-02 08:05] VITALS: TEMP 98
[2020-05-02] MEDS ORDERED: Metoprolol Tartrate 25 MG TAB PO SCH (09:00)
[2020-05-02] MEDS: Aspirin 81 mg Enteric Coated Tablet PO SCH (09:01)
[2020-05-02] MEDS: hydrALAZINE 25 MG TAB PO SCH (09:01)
[2020-05-02] MEDS: Enoxaparin Sodium 40 MG/0.4 ML SYRINGE SC SCH (09:01)
[2020-05-02] MEDS: Lisinopril 20 MG TAB PO SCH (09:02)
[2020-05-02] MEDS ORDERED: Iopamidol-370 76% 500 ML 1 ML ONE (09:32)
--- NOTE | 2020-05-02 09:45 | ULT ---
RENAL ULTRASOUND: HISTORY: Hypertension. FINDINGS: Real-time imaging of the right and left kidneys was performed. The right kidney measures 10.2 cm and the left kidney 10 cm in size. No cyst, mass, or obstruction. Bladder region appears unremarkable. COLOR DOPPLER EVALUATION WITH SPECTRAL ANALYSIS. The aortic velocities are 126 cm/s. On the right side, some renal artery measurements as high as 241 cm/s were obtained. On the left, 192 cm/s. Resistive index on the right was 0.64 and on the left 0.74. IMPRESSION: Elevated velocities in both renal arteries. Changes are particularly pronounced on the right would s uggest some mild to moderate stenosis. Further evaluation with CT angiography would be recommended f or further assessment. POS: OFF
[2020-05-02 11:49] VITALS: BP 172/99
--- NOTE | 2020-05-02 11:55 | CT ---
CTA Angio Abd W WO Con History: Renal artery stenosis Comparison: Ultrasound same day Findings: Lung bases are clear. No pericardial effusion. The liver, spleen, pancreas, adrenal glands are normal. Single bilateral renal arteries which are widely patent. No stenosis. Common trunk between the celiac artery and superior mesenteric arteries. No dilated loops of large or small bowel. The inferior mesenteric artery is patent. Bilateral symmetric renal enhancement. No perinephric stranding. Small disc osteophyte complex at L1/L2. Minimal retrolisthesis of L5/S1 due to degenerative disc spac e height loss. The spleen, pancreas, liver, gallbladder are all normal. Visualized portion of the appendix is normal . Impression: Widely patent single bilateral renal arteries without stenosis.
--- NOTE | 2020-05-02 16:16 | PDOC.DS.DS ---
Provider Date of Admission: 04/29/20 14:19 Date of Discharge: 05/02/20 Admitting Provider: Emigdio Whatley MD Primary Care Physician: NO PCP PROVIDER Course Hospital Course: Hypertensive emergency Patient presented in hypertensive emergency with initial blood pressure 224/133. Started on a Cardene drip in emergency room with improvement of blood pressure in the 160s systolic. Also received 50 mg of Toprol and 10 mg of amlodipine. Initial troponin 0 0.036. No ischemic changes on EKG. Patient reports strong family history of early hypertension and reports he is not previously on any medications. Does not have a primary care provider. Patient was admitted to the hospital and started on as needed IV hydralazine. He was started on oral medications with lisinopril then hydralazine and then metoprolol. Patient's blood pressure required a fair amount of titration of these medications to get adequate control. Echocardiogram revealed concentric LVH consistent with a long history of hypertensive cardiomyopathy. Renal artery Doppler was concerning for possible elevated velocities. CTA of the renal arteries showed widely patent arteries with no evidence of occlusion. Once his blood pressures had been managed adequately to get them in a tolerable range she was felt to be stable for discharge for continued outpatient management. Hypertensive encephalopathy 34-year-old male with past medical history of hypertension presents for 3 episodes of expressive aphasia associated with right arm weakness lasting approximately 10 minutes each. Patient is asymptomatic on presentation CT brain, CTA head neck with no acute findings. Neurologically intact on exam. MRI negative and echocardiogram only revealing hypertensive cardiomyopathy with LVH. Telemetry monitoring unremarkable. TSH and magnesium normal. Hemoglobin A1c was normal. Ultimately suspect this is more of a hypertensive encephalopathy than a TIA. Patient remained completely asymptomatic throughout his hospitalization. Based on recommendations of neurology will continue him on a aspirin at 81 mg daily. Elevation in troponin Initial troponin 0 0.036. EKG with no ischemic changes but nonspecific T wave inversions. Patient has no chest pain. Likely secondary to hypertensive emergency. Subsequent levels were similar but were not trending in any particular direction. Do not suspect any type of ischemic injury. Hyperlipidemia: Patient has hyperlipidemia on his labs. He reports this was normal a couple years ago. He was started on a statin in the hospital will be continued on that. Disposition: Patient was repeatedly informed of his need to establish with a local primary care provider. He will need to have ongoing blood pressure monitoring and titration of his medications. Patient and his were educated on healthy lifestyle modifications and diet. Resuscitation Status: 04/29/20 14:33 Resuscitation Status Routine Co-Sign Provider: Resuscitation Status: FULL: Full Resuscitation Lab Results: 05/02/20 05:31 05/02/20 05:31 Abnormal Lab Results - Last 48 hrs 05/01/20 07:27: MPV 6.9 L, Neutrophils # 6.7 H, Monocytes # 0.7 H 05/02/20 05:31: Sodium 135 L, Chloride 108 H, Carbon Dioxide 19 L 05/02/20 05:31: WBC 11.6 H, MPV 6.9 L, Basophils % 1.1 H, Neutrophils # 7.5 H, Monocytes # 0.9 H Vitals: Vital Signs (12 hours) Temp Pulse Resp BP BP Pulse Ox 05/02/20 11:48 98.0 F 80 15 172/99 H 99 05/02/20 08:59 103 H 143/92 H 05/02/20 07:20 98.0 F 94 16 176/90 H 97 05/02/20 06:25 88 134/81 05/02/20 05:25 84 176/100 H Weight Weight 176 lb Physical Exam: The patient was seen and examined on the day of discharge. General Appearance: NAD, awake alert Problem (1) Hypertensive encephalopathy Code(s): I67.4 - HYPERTENSIVE ENCEPHALOPATHY Status: Acute (2) Hypertensive emergency Code(s): I16.1 - HYPERTENSIVE EMERGENCY Status: Acute (3) Hypertensive cardiomyopathy Code(s): I11.9 - HYPERTENSIVE HEART DISEASE WITHOUT HEART FAILURE; I43 - CARDIOMYOPATHY IN DISEASES CLASSIFIED ELSEWHERE Status: Acute (4) Hyperlipidemia Code(s): E78.5 - HYPERLIPIDEMIA, UNSPECIFIED Status: Acute Time Spent in discharge related activities (mins): 35 Plan Prescriptions: hydrALAZINE [Apresoline] 50 mg PO TID #90 tab Atorvastatin Calcium [Lipitor] 40 mg PO HS #30 tab Metoprolol Succinate 50 mg PO DAILY #30 tab.er.24h Lisinopril [Zestril] 20 mg PO DAILY #30 tab Home Medications: Medication Instructions Recorded Confirmed Type Aspirin [Ecotrin Low Strength] 81 mg PO DAILY tab 05/02/20 Rx Atorvastatin Calcium [Lipitor] 40 mg PO HS #30 tab 05/02/20 Rx Lisinopril [Zestril] 20 mg PO DAILY #30 tab 05/02/20 Rx Metoprolol Succinate 50 mg PO DAILY #30 tab.er.24h 05/02/20 Rx hydrALAZINE [Apresoline] 50 mg PO TID #90 tab 05/02/20 Rx Allergies: No Known Allergies Allergy (Verified 04/30/20 02:08) Discharge Instructions:: Establish with a PCP for a follow-up visit this week. Activity:: Activity as Tolerated Nourishment:: Heart Healthy Diet, Low Sodium Diet Referrals: Leanna Steve MD [Active] - (Call for questions.) PROVIDER,NO PCP [Primary Care Provider] - 7 Days (Please establish a Primary Care provider and follow up with them in 7days. Call the office to schedule an appointment.) Disposition: HOME Quality CORE MEASURES:: N/A
== END 2020-05-02 14:41 | disposition home or self-care (01) | DRG 78 ==
LOC: ERS 10:40 → ERHOLD 14:19 → 3SE 04-30 00:52
PROVIDERS: ADMIT Internal Medicine; ATTEND Internal Medicine
DX: I67.4 Hypertensive encephalopathy (principal); I16.1 Hypertensive emergency; R47.01 Aphasia; I43 Cardiomyopathy in diseases classified elsewhere; E78.5 Hyperlipidemia, unspecified; I11.9 Hypertensive heart disease without heart failure; Z20.822 Contact with and (suspected) exposure to COVID-19
CPT/HCPCS: 0240U; 36415; 70496; 70498; 70551; 71045; 74175; 76770; 80048; 80053; 80061; 80306; 80307; 81003; 82553; 83036; 83735; 84443; 84484; 85025; 93005; 93306; 96365; 96366; 96375; J0360; J1650; Q9967

== ENCOUNTER 2020-06-03 15:58 | Outpatient (CLI) | payer BC, OTHER ==
[2020-06-03 17:24] LABS: Anion Gap 12 mmol/L (10-20); BUN (Urea Nitrogen) 13 mg/dL (8.9-20.6); Calc. Creatinine Clearance 0 mL/min (70-130); Calcium 9.6 mg/dL (7.8-10.44); Carbon Dioxide 27 mmol/L (22-29); Chloride 104 mmol/L (98-107); Glucose 118 mg/dL (70-105); Sodium 139 mmol/L (136-145)
[2020-06-03 17:45] LABS: PTT 30.4 sec (22.0-33.0); Prothrombin Time 10.5 sec (9.5-12.1)
[2020-06-04 04:29] LABS: SARS-CoV-2 PCR by NAA Not Detected (NotDetected)
== END 2020-06-03 15:59 | disposition home or self-care (01) ==
LOC: LABBT 15:58
PROVIDERS: ATTEND Internal Medicine Cardiovascular Disease
DX: Z01.818 Encounter for other preprocedural examination (principal); G45.9 Transient cerebral ischemic attack, unspecified; Z20.822 Contact with and (suspected) exposure to COVID-19
CPT/HCPCS: 80048; 85610; 85730; 87635; U0003; U0005

== ENCOUNTER → 2020-06-08 | Day surgery (SDC) | payer BC, OTHER ==
[2020-06-07 14:55] VITALS: BMI 25.8
[~2020-06-08] MED LIST: PROPOFOL 20 ML ONE
== END ==
LOC: CCL 06:03
PROVIDERS: ATTEND Internal Medicine Cardiovascular Disease
PROC: B24BZZ4 Ultrasonography of Heart with Aorta, Transesophageal (ICD-10-PCS; principal; 2020-06-08)
DX: I63.9 Cerebral infarction, unspecified (principal); Q21.1 Atrial septal defect; I70.0 Atherosclerosis of aorta; I11.9 Hypertensive heart disease without heart failure; I43 Cardiomyopathy in diseases classified elsewhere; E78.5 Hyperlipidemia, unspecified; Z79.82 Long term (current) use of aspirin; Z79.899 Other long term (current) drug therapy
CPT/HCPCS: 93005; 93010; 93312; J2704